=== PATIENT | female | born 1970 | race Asian ===

== ENCOUNTER 2016-09-16 04:51 | Inpatient (IN) | payer OTHER ==
[2016-09-12 18:19] VITALS: BMI 23.2
[~2016-09-16 04:51] MED LIST: GELATIN SPONGE,ABSORBABLE 1 GM PACKET TP ONE; THROMBIN (BOVINE) 5,000 UNIT VIAL TP ONE
[2016-09-16] MEDS ORDERED: THROMBIN (BOVINE) 5,000 UNIT VIAL TP ONE ×2 (07:12→09:06)
[2016-09-16] MEDS ORDERED: BACITRACIN 15 GM TUBE TOPICAL OINTMENT ONE (07:12)
[2016-09-16] MEDS ORDERED: SUCCINYLCHOLINE CHLORIDE 200 MG/10 ML VIAL ONE (07:39)
[2016-09-16] MEDS ORDERED: LIDOCAINE HCL/PF 2% SDV 5ML VIAL ONE (07:39)
[2016-09-16] MEDS ORDERED: PROPOFOL 20 ML ONE ×14 (07:39→10:44)
[2016-09-16] MEDS ORDERED: MIDAZOLAM HCL 2 MG/2 ML SINGLE DOSE VIAL ONE (07:40)
[2016-09-16] MEDS ORDERED: DESFLURANE GAS 240 ML BOTTLE IH ONE (07:47)
[2016-09-16] MEDS ORDERED: ROCURONIUM BROMIDE 50 MG/5 ML VIAL ONE (07:51)
[2016-09-16] MEDS ORDERED: SCOPOLAMINE HYDROBROMIDE 1 PATCH PATCH.TD72 ONE (07:59)
--- NOTE | 2016-09-16 08:00 | HP ---
History & Physical Update - History History: No Change - Physical Physical: No Change - Assessment Assessment: No Change - Plan Plan: No Change
[2016-09-16] MEDS ORDERED: ceFAZolin SODIUM 1 GM VIAL ONE ×2 (08:28→17:50)
[2016-09-16] MEDS ORDERED: ceFAZolin SODIUM 1 GM VIAL IVPB ONE (08:40)
[2016-09-16] MEDS ORDERED: DEXAMETHASONE SOD PHOSPHATE 4 MG/1 ML VIAL ONE (08:57)
[2016-09-16] MEDS ORDERED: ONDANSETRON 4 MG/2 ML VIAL ONE (08:57)
[2016-09-16] MEDS ORDERED: BACITRACIN 50,000 UNITS VIAL TP ONE (09:06)
[2016-09-16] MEDS ORDERED: BACITRACIN 15 GM TUBE TOPICAL OINTMENT TP ONE ×2 (09:06→12:15)
[2016-09-16] MEDS ORDERED: ePHEDrine SULFATE 50 MG/1 ML AMPULE ONE (09:34)
[2016-09-16] MEDS ORDERED: BUPIVACAINE HCL/PF 0.5% (5MG/ML) 10 ML VIAL ONE (11:31)
--- NOTE | 2016-09-16 12:00 | OP ---
Operative Note - Note: Operative Date: 09/16/16 Pre-Operative Diagnosis: L4-5 spondylolisthesis, stenosis; instability, radiculopathy Operation: Complete B L4 and partial B L5 laminectomies for decompression of thecal sac and B L4-5 roots; microsurgical dissection; L4-5 B discectomy, interobody fusion, interbody implant placement B with 11 mm corticocancellous device; posterior pedicle screw system placement L4-5; posterolateral fusion L4- 5; fluoroscopy Findings: sensitive L 4 and L5 roots, L >? R; stenosis lateral recess L > R; instability L4-5; EMG threshold > 20 for all 4 screws Implants: [employer] [place] 4.5 system (6.5 x40 mm screws x4 and 40 mm rods x2) Surgeon: Dat Shelton Shroud Line Tier: Sarah Castro Anesthesiologist/CANDLE MAKING SUPERVISOR: Cabrera Guthrie Anesthesia: General Specimens Removed: L4-5 disc Estimated Blood Loss (mls): 150
[2016-09-16] MEDS ORDERED: ONDANSETRON 4 MG/2 ML VIAL IVPB PRN (12:01)
[2016-09-16] MEDS ORDERED: ACETAMINOPHEN 325 MG TABLET (FP) PO PRN (12:01)
[2016-09-16] MEDS ORDERED: BISACODYL 10 MG SUPP.RECT RC PRN (12:01)
[2016-09-16] MEDS ORDERED: ACETAMINOPHEN/CAFFEINE/BUTALBITAL 1 TAB PO PRN (12:02)
[2016-09-16] MEDS ORDERED: BUPIVACAINE HCL/PF 0.5% (5MG/ML) 10 ML VIAL IJ ONE (12:05)
[2016-09-16] MEDS ORDERED: PROMETHAZINE HCL 25 MG/1 ML VIAL IVPB PRN (12:23)
[2016-09-16] MEDS ORDERED: DEXAMETHASONE SOD PHOSPHATE 4 MG/1 ML VIAL IVPUSH PRN (12:23)
[2016-09-16] MEDS ORDERED: HYDROmorphone *PCA* 10MG/50ML DISP.SYRIN PCA SCH (12:30)
--- NOTE | 2016-09-16 12:47 | PN ---
Progress Note (short form) - Note Progress Note: NEUROSURGERY In PACU AF, VSS; O2 sat 100% PE: CV- RRR; Lungs- CTA B; Abd-benign; Ext- No sign of DVT Motor- B Quad/DF/PF 5/5, Sensation- intact LT RETAIL GREETER for pain Intra-op findings d/w David by phone (no unexpected bleeding) Labs pending LSO brace when OOB
--- NOTE | 2016-09-16 12:53 | SURG ---
Surgery Fisher Seal Note Fisher Seal: Sarah Castro PA-C Date of Service: 09/16/16 Diagnosis: L4-5 spondylolisthesis, stenosis; instability, radiculopathy Procedure: Complete B L4 and partial B L5 laminectomies for decompression of thecal sac and B L4-5 roots; microsurgical dissection; L4-5 B discectomy, interobody fusion , interbody implant placement B with 11 mm corticocancellous device; posterior pedicle screw system placement L4-5; posterolateral fusion L4-5; fluoroscopy I was present for the entirety of the operative procedure. For further detail, please refer to operative report. Visit type - Case Type Case Type: Scheduled Admission - Emergency Emergency Visit: No - New patient This patient is new to me today: Yes Date on this admission: 09/16/16 - Critical Care Critical Care patient: No
[2016-09-16 13:02] LABS: MCH 31.3 pg (25.7-33.7); MCHC 34.8 g/dl (32.0-36.0); MEAN CELL VOLUME 89.8 fl (80-96); MEAN PLT VOLUME 7.2 fl (7.5-11.1); PLATELET COUNT 222 K/MM3 (134-434); RDW 12.1 % (11.6-15.6); WHITE BLOOD COUNT 6.2 K/mm3 (4.0-10.0)
[2016-09-16 13:27] LABS: ANION GAP 8 (8-16); CALCIUM 8.6 mg/dL (8.5-10.1); CO2 28 mmol/L (21-32); CREATININE 0.8 mg/dL (0.55-1.02); GLUCOSE,RANDOM 114 mg/dL (74-106)
[2016-09-16] MEDS: D5-1/2NS+20 MEQ KCL - 1,000 ML IV SCH ×2 (13:30→23:25)
[2016-09-16] MEDS: BACITRACIN 15 GM TUBE TOPICAL OINTMENT TP SCH ×2 (14:15→22:10)
[2016-09-16] MEDS ORDERED: PROMETHAZINE HCL 25 MG/1 ML VIAL ONE (14:17)
[2016-09-16] MEDS: diazePAM 5 MG TABLET PO SCH ×3 (16:23→21:13)
[2016-09-16] MEDS: DOCUSATE SODIUM 100 MG CAPSULE (FP) PO SCH ×2 (16:24→21:13)
[2016-09-16] MEDS ORDERED: DEXTROSE 5%-WATER - 50 ML IVPB ONE (17:50)
[2016-09-16] MEDS: CEFAZOLIN 1 GM in DEXTROSE 5%-WATER - 50 ML IVPB SCH (17:58)
[2016-09-17] MEDS ORDERED: ceFAZolin SODIUM 1 GM VIAL ONE ×2 (00:49→10:45)
[2016-09-17] MEDS ORDERED: DEXTROSE 5%-WATER - 50 ML IVPB ONE ×2 (00:49→10:46)
[2016-09-17] MEDS: CEFAZOLIN 1 GM in DEXTROSE 5%-WATER - 50 ML IVPB SCH ×2 (02:39→10:53)
[2016-09-17] MEDS: diazePAM 5 MG TABLET PO SCH ×3 (05:44→22:15)
[2016-09-17] MEDS: DOCUSATE SODIUM 100 MG CAPSULE (FP) PO SCH ×3 (05:44→22:15)
--- NOTE | 2016-09-17 07:53 | PN ---
Progress Note (short form) - Note Progress Note: NEUROSURGERY POD #1 Incisional pain Nausea (always has nausea after anesthesia) Tmax 98.9, AF, VSS PE: CV- RRR; Lungs- CTA B; Abd-benign; Ext- No sign of DVT Motor- B Quad/DF/PF 5/5 except L DF/PF 4+, Sensation- intact LT WBC 6.2, Hgb 12.9 D/C PROCESS DEVELOPMENT CHEMIST Transition to Nucynta Keep clemons for 24 hours more Intra-op findings d/w pt Decadron x1 LSO brace when OOB Adv diet
[2016-09-17] MEDS ORDERED: HYDROmorphone HCL CARPU-JECT 1 MG/1 ML DISP.SYRIN IVPB PRN (08:11)
[2016-09-17] MEDS ORDERED: DEXAMETHASONE SOD PHOSPHATE 4 MG/1 ML VIAL IVPB ONE (08:30)
[2016-09-17] MEDS: TAPENTADOL HYDROCHLORIDE 50 MG TABLET PO PRN ×3 (10:51→22:15)
[2016-09-17] MEDS: BACITRACIN 15 GM TUBE TOPICAL OINTMENT TP SCH ×2 (10:52→22:16)
[2016-09-17] MEDS: LISINOPRIL 5 MG TABLET (FP) PO SCH (10:52)
[2016-09-17] MEDS ORDERED: ACETAMINOPHEN 1000 MG/100 ML VIAL (NON FORMULARY) IVPB PRN (14:09)
[2016-09-17] MEDS: GABAPENTIN 100 MG CAPSULE (FP) PO SCH ×2 (14:29→22:15)
[2016-09-17] MEDS: D5-1/2NS+20 MEQ KCL - 1,000 ML IV SCH (14:30)
--- NOTE | 2016-09-17 14:35 | PN ---
Progress Note (short form) - Note Progress Note: ANESTHESIOLOGY POST-OP CHECK 46F s/p PLIF under general anesthesia POD #1. Pt c/o nausea, vomiting. Dilaudid DRY WALL INSTALLER discontinued and some improvement noted. Pain 10/10 but nausea is worse and currently hesitant to take pain meds. Gamble in place. Vital Signs Temperature 98.9 F 09/17/16 06:00 Pulse Rate 59 L 09/17/16 06:00 Respiratory Rate 18 09/17/16 06:00 Blood Pressure 115/66 09/17/16 06:00 O2 Sat by Pulse Oximetry (%) 100 09/16/16 21:00 Active Medications Acetaminophen (Tylenol -) 650 mg PO Q6H PRN PRN Reason: FEVER Acetaminophen (Ofirmev Injection -) 1,000 mg IVPB Q6H PRN PRN Reason: PAIN Stop: 09/18/16 08:10 Acetaminophen/Butalbital/Caffeine (Fioricet -) 1 tablet PO PRN PRN PRN Reason: MIGRAINE Bacitracin (Bacitracin -) 1 applic TP BID [facility] Last Admin: 09/17/16 10:52 Dose: 1 applic Bisacodyl (Dulcolax Suppository -) 10 mg RC DAILY PRN PRN Reason: CONSTIPATION Dexamethasone Sodium Phosphate (Decadron Injection -) 4 mg IVPUSH ONCE PRN PRN Reason: NAUSEA AND/OR VOMITING Diazepam (Valium -) 5 mg PO TID [facility] Last Admin: 09/17/16 05:44 Dose: 5 mg Diphenhydramine HCl (Benadryl Injection -) 12.5 mg IVPUSH ONCE PRN PRN Reason: FOR ITCHING Docusate Sodium (Colace -) 100 mg PO TID [facility] Last Admin: 09/17/16 05:44 Dose: 100 mg Gabapentin (Neurontin -) 100 mg PO TID [facility] Hydromorphone HCl (Dilaudid Injection -) 1 mg IVPB Q4H PRN PRN Reason: PAIN Potassium Chloride/Dextrose/Sod Cl (D5-1/2ns+20 Meq Kcl -) 1,000 mls @ 100 mls/ hr IV ASDIR [facility] Last Admin: 09/16/16 23:25 Dose: 100 mls/hr Potassium Chloride/Dextrose/Sod Cl (D5-1/2ns+20 Meq Kcl -) 1,000 mls @ 42 mls/ hr IV ASDIR MARCELLE Lisinopril (Prinivil) 5 mg PO DAILY MARCELLE Last Admin: 09/17/16 10:52 Dose: 5 mg Ondansetron HCl (Zofran Injection) 4 mg IVPB Q6H PRN PRN Reason: NAUSEA AND/OR VOMITING Last Admin: 09/17/16 06:38 Dose: 4 mg Promethazine HCl (Phenergan Injection -) 12.5 mg IVPB Q6H PRN PRN Reason: NAUSEA AND/OR VOMITING Tapentadol (Nucynta -) 50 mg PO Q4H PRN PRN Reason: PAIN Last Admin: 09/17/16 10:51 Dose: 50 mg Gen: awake, alert No apparent anesthesia complications. Nausea treated, discussed with patient to ask for pain meds if needed and continue anti-nausea meds.
[2016-09-17] MEDS ORDERED: SCOPOLAMINE HYDROBROMIDE 1 PATCH PATCH.TD72 ONE (14:49)
--- NOTE | 2016-09-17 15:10 | OP ---
DATE OF OPERATION: 09/16/2016 PREOPERATIVE DIAGNOSES: 1. L4-L5 spondylolisthesis with segmental instability. 2. Bilateral lateral recess and foraminal stenosis, left greater than right, with lumbar radiculopathy. POSTOPERATIVE DIAGNOSES: 1. L4-L5 spondylolisthesis with segmental instability. 2. Bilateral lateral recess and foraminal stenosis, left greater than right, with lumbar radiculopathy. ATTENDING SURGEON: Dat Shelton MD BRIM POUNCING MACHINE OPERATOR: JOSSUE Castellanos ANESTHESIA: General endotracheal. ANESTHESIOLOGIST: Saskia Hernandez CRNA and Cabrera Guthrie MD ESTIMATED BLOOD LOSS: Was 150 mL. PROCEDURES: 1. Complete bilateral L4 and partial bilateral L5 laminectomies including facetectomies at L4-5 and foraminotomies at L4-5 and L5-S1 for decompression of the spinal canal as well as bilateral L4 and L5 nerve roots (37360, 40156). 2. Harvested autologous laminar spinous process and facet bone for interbody and posterolateral fusion (75628). 3. Microsurgical dissection with operating microscope and microsurgical technique (17679). 4. Bilateral L4-5 diskectomy. 5. Posterior lumbar interbody fusion L4-5 (31356). 6. Utilization of intervertebral 11-mm cortical cancellous bone prosthetic device from [employer] (93005). 7. Posterior lumbar pedicle screw fixation with distal placement from L4 to L5 with [employer] [place] 4.5 titanium system (6.5 x 40 mm screws at L4 and L5 bilaterally connected by 40-mm rods and locking screws) (32529). 8. Posterior lateral fusion with autologous morcellized bone graft and bone dust at L4-5 (61216). 9. Intraoperative fluoroscopy for localization of pedicle screw placement (08614-44). FINDINGS: 1. Instability L4-5. 2. Facet hypertrophy L4-5 bilaterally, left greater than right. 3. Extremely sensitive lumbar nerve roots L4 and L5, left greater than right. 4. Lateral recess stenosis with left L5 greater than L4 nerve root impingement. INDICATIONS: The patient is a 46-year-old female who complains of progressive lower back pain and left lower extremity radiculopathy. She was found on MRI to have spondylolisthesis and kyphosis at L4-5. Her flexion-extension x-ray demonstrated instability at the L4-5 level in the sagittal plane. Because of her intractable symptoms, neurological deficit to the left lower extremity, and failed conservative treatment, she is consented for lumbar decompression and fusion with instrumentation. The risks of procedure include but are not limited to bleeding, infection, dural tear with CSF leak, neurological injury increase in thromboembolic risks, adjacent level disease, nonunion of the fusion, and other risks of general anesthesia. The patient understands the indications for the procedure, procedure in detail, risks and benefits, and alternatives for treatment of her lumbar condition, and wishes to proceed. No guarantee was given for favorable outcome. Intraoperative SSEP and EMG monitoring were instituted. PROCEDURE IN DETAIL: After the patient was taken to the operating room, she was placed in supine position. After general anesthesia was induced and appropriate lines were placed, Gamble catheter was inserted. SCDs were applied. The patient was then turned in a prone position on a Alli frame. All pressure points were checked and padded. O2 saturation of bilateral lower extremities was 100%. Lumbar region was cleaned with alcohol and prepped with Betadine. A localizing x-ray was obtained with a spinal needle in place. This localized the incision to be at L4-5. An approximately 3-1/2-inch incision was opened in the midline. Subperiosteal dissection was carried out bilaterally from the bottom of the L3 lamina to the bottom of L5 lamina. The facet joints at L3-4 and L4-5 were skeletonized with periosteal elevator and self-retaining retractors were inserted. At this point, a clamp was placed on inter- spinous ligament at L4-5 and localizing x-ray was obtained to ascertain the exposure to be at the L4-5 level. Bilateral L4 complete laminectomy was carried out as well as partial bilateral L5 laminectomy. Facetectomy at L4-5 was also carried out because of facet hypertrophy as well as to gain access into the lateral recess. High speed pneumatic drill was used to bur down the bone surface until it was smooth. This portion of the procedure was performed with the use of operating microscope for both illumination and magnification. Microsurgical techniques were utilized. The ligamentum flavum was dissected with angled curette and resected with Kerrison rongeur. Lateral recess was thoroughly decompressed. The left L5 nerve root was under more compression than the right L5 nerve root, and it was sensitive to bipolar electrocautery stimulation from the start of the procedure. After decompression of the L5 and L4 nerve roots, nerve roots were much less sensitive. After lateral recesses were decompressed and under general left L5 nerve root retraction, disk annulus was incised with a No. 15 blade. The disk space was cleaned with serially larger disk space scraper from 7-11 mm. A 12-mm disk space distractor was placed. Preoperatively, the disk space was sized to be approximately 10 mm in maximal height. Attention was then turned to the right-sided L4-5 interspace, and under general right L5 nerve root retraction, disk annulus was excised with a No. 15 blade. The disc space_ was cleaned with serially larger disk space scraper from 8 to 11 mm. The straight, side-cutting and downgoing angled curettes were used to clean the disk space, and the lateral aspect of the disk space was burred out with high-speed pneumatic drill to create a path for the interbody implant. The 11 x 25-mm body implant was inserted and countersunk by about 2 mm on the right. The procedure was then repeated on the left-hand side after distraction was moved. After disk space was cleaned, a central portion of the disk space was packed with autologous morcellized bone graft. The bone graft was previously harvested and prepared with bone meal. Another 11 x 25-mm body implant was inserted and was countersunk by 3 mm on the left-hand side. The drill was kept wet throughout the procedure with occasional irrigation. At this point, the microscope was moved out of the field , and the fluoroscope was draped and first moved into the AP position to ascertain the AP position in the spine of the lower lumbar region. The head of the scope was then turned to the lateral position after which sterile draping was completed on the other arm of the fluoroscope. The entry point of pedicle screw was marked with high- speed pneumatic drill, and a handheld awl was used to create a path for the pedicle screw. The screw was aimed medially by about 10 degrees from L4 and L5. Screw holes were then tapped and then a 6.5 x 40-mm screw was used at L4 and L5 bilaterally. This was done with lateral fluoroscopic guidance throughout. With EMG, each pedicle screw was tested, and they were all greater than 20 mA. A 40-mm marilu was loaded on top of the pedicle screws and locked with locking screws. The screws were compressed prior to final tightening. A torque and counter torque wrench were used for final tightening of the pedicle screw. Final lateral and AP fluoroscopic imaging demonstrated satisfactory position of the interbody implants as well as the pedicle screw implants. At this point, the posterolateral surface of the spine was decorticated with high-speed pneumatic drill, and it was packed with autologous morcellized bone graft and bone dust harvested and prepared earlier. The interbody implants were tapped anteriorly so they were flush bilaterally and they were countersunk by about 4 mm bilaterally. At this point, the wound was irrigated with antibiotics and irrigation. A piece of 4 x 4-cm Active Barrier membrane was layered in the epidural space as an adhesion barrier. Dorsal lumbar musculature hemostasis was obtained with bipolar electrocautery. Dorsal lumbar muscle was then approximated with 0 Vicryl suture, and dorsal lumbar fascia was closed with 0 Vicryl sutures. Subcutaneous fascia was closed with 3-0 Vicryl suture. The skin was closed with 4-0 Vicryl running subcuticular suture. Steri-Strips and a sterile occlusive dressing were applied. The patient tolerated the procedure well and was returned back to the supine position. She was moving bilateral lower extremities well. All needle, instrument, lap counts were correct. Intraoperative SSEP and EMG signals remained stable throughout. The patient received 1 dose of 1 g of Ancef prior to the incision. The OR timeout procedure was followed. Zeus CHEUNG/[id number] MTDFarrukh
--- NOTE | 2016-09-17 16:05 | PATH ---
Surgical Pathology Report Patient Name: EDINSON ROSEN Med. Rec. #: [id number] /Age/Gender: 1970 (Age: 46) / F Account: [id number] Location: [facility] MED/SURG Taken: 09/16/2016 Received: 09/16/2016 Reported: 09/17/2016 Physicians: Dat Shelton M.D. Specimen(s) Received DISC L4-L5 Clinical History Lumbar spinal spondylolisthesis, spinal instability Final Diagnosis INTERVERTEBRAL DISC, L4-5, POSTERIOR LUMBAR INTERBODY FUSION: CARTILAGE WITH DEGENERATIVE CHANGES. Electronically Signed Pa Sim M.D. Gross Description Received in formalin labeled "disc, L4-5" is a 2.3 x 2.0 x 0.3 cm aggregate of abdalla fragments of fibrocartilaginous tissue. A office services representative portion is submitted in one cassette. /09/16/2016 saudi/09/16/2016
[2016-09-18] MEDS: GABAPENTIN 100 MG CAPSULE (FP) PO SCH ×3 (06:38→22:12)
[2016-09-18] MEDS: diazePAM 5 MG TABLET PO SCH ×3 (06:38→22:12)
[2016-09-18] MEDS: DOCUSATE SODIUM 100 MG CAPSULE (FP) PO SCH ×3 (06:38→22:12)
[2016-09-18] MEDS: TAPENTADOL HYDROCHLORIDE 50 MG TABLET PO PRN ×3 (06:40→22:12)
--- NOTE | 2016-09-18 08:19 | PN ---
Progress Note (short form) - Note Progress Note: NEUROSURGERY POD #2 Incisional pain and spasm Less nausea today(pt always has nausea after anesthesia) Daughter at bedside Tmax 99.1, AF, VSS PE: CV- RRR; Lungs- CTA B; Abd-benign; Ext- No sign of DVT Motor- B Quad/DF/PF 4+-5/5 except L DF/PF 4+, Sensation- intact LT LS spine x-rays- intact implants; L4-5 space restored; ileus On prn Nucynta and Dilaudid D/C clemons Intra-op findings d/w pt LSO brace when OOB Bowel regimen Incentive spirometry encouraged Adv diet D/C IVF
[2016-09-18] MEDS: BACITRACIN 15 GM TUBE TOPICAL OINTMENT TP SCH ×3 (09:26→22:25)
[2016-09-18] MEDS: LISINOPRIL 5 MG TABLET (FP) PO SCH (09:26)
[2016-09-19] MEDS: D5-1/2NS+20 MEQ KCL - 1,000 ML IV SCH ×2 (00:25→13:25)
[2016-09-19] MEDS: DOCUSATE SODIUM 100 MG CAPSULE (FP) PO SCH ×3 (06:38→21:38)
[2016-09-19] MEDS: diazePAM 5 MG TABLET PO SCH ×3 (06:38→21:38)
[2016-09-19] MEDS: GABAPENTIN 100 MG CAPSULE (FP) PO SCH ×3 (06:38→21:38)
--- NOTE | 2016-09-19 07:36 | PN ---
Progress Note (short form) - Note Progress Note: NEUROSURGERY POD #3 Incisional pain and spasm Able to void after Gamble out Tolerating regular diet Less nausea at bedside Tmax 99.7, AF, VSS PE: CV- RRR; Lungs- CTA B; Abd-benign; Ext- No sign of DVT Motor- B Quad/DF/PF 4+-5/5, Sensation- intact LT Dressing C/D/I- changed On prn Nucynta and Dilaudid Intra-op findings d/w pt LSO brace when OOB Bowel regimen- give mag citrate Incentive spirometry encouraged CBC/chem in am
[2016-09-19] MEDS: TAPENTADOL HYDROCHLORIDE 50 MG TABLET PO PRN ×2 (07:42→21:39)
[2016-09-19] MEDS ORDERED: PT OWN MED DRAWER 7, Y5N ONE (09:23)
[2016-09-19] MEDS: MAGNESIUM CITRATE 300 ML BOTTLE PO SCH ×3 (09:26→11:49)
[2016-09-19] MEDS: LISINOPRIL 5 MG TABLET (FP) PO SCH (09:27)
[2016-09-19] MEDS: BACITRACIN 15 GM TUBE TOPICAL OINTMENT TP SCH ×2 (09:30→22:34)
[2016-09-20] MEDS: DOCUSATE SODIUM 100 MG CAPSULE (FP) PO SCH ×3 (06:30→22:13)
[2016-09-20] MEDS: diazePAM 5 MG TABLET PO SCH ×3 (06:30→22:13)
[2016-09-20] MEDS: GABAPENTIN 100 MG CAPSULE (FP) PO SCH ×3 (06:30→22:13)
[2016-09-20 08:33] LABS: BASOPHIL 0.4 % (0-2.0); EOSINOPHIL 2.1 % (0-4.5); MCH 31.4 pg (25.7-33.7); MCHC 34.8 g/dl (32.0-36.0); MEAN CELL VOLUME 90.4 fl (80-96); MEAN PLT VOLUME 7.4 fl (7.5-11.1); NEUTROPHILS 73.6 % (42.8-82.8); PLATELET COUNT 251 K/MM3 (134-434); RDW 12.5 % (11.6-15.6); WHITE BLOOD COUNT 7.6 K/mm3 (4.0-10.0)
--- NOTE | 2016-09-20 08:51 | PN ---
Progress Note (short form) - Note Progress Note: NEUROSURGERY POD #4 Incisional pain and spasm Walking to solarium BM x2 last 24 hours Tolerating regular diet Daughter at bedside Some numbness L leg but no sciatica (not unexpected given prior sciatica) Tmax 100.5, 98.7 now, VSS PE: CV- RRR; Lungs- CTA B; Abd-benign; Ext- No sign of DVT Motor- B Quad/DF/PF 4+-5/5, Sensation- intact LT Dressing C/D/I- changed WBC 7.6; Na 140; BUN 7, Cr 0.8 On prn Nucynta and Dilaudid LSO brace when OOB Incentive spirometry encouraged
[2016-09-20] MEDS ORDERED: PT OWN MED DRAWER 7, Y5N ONE (09:17)
[2016-09-20] MEDS: LISINOPRIL 5 MG TABLET (FP) PO SCH (09:20)
[2016-09-20] MEDS: BACITRACIN 15 GM TUBE TOPICAL OINTMENT TP SCH ×2 (09:21→22:15)
[2016-09-20] MEDS: TAPENTADOL HYDROCHLORIDE 50 MG TABLET PO PRN ×2 (09:41→20:27)
[2016-09-20] MEDS: D5-1/2NS+20 MEQ KCL - 1,000 ML IV SCH (13:01)
[2016-09-21] MEDS: diazePAM 5 MG TABLET PO SCH ×2 (06:35→13:28)
[2016-09-21] MEDS: GABAPENTIN 100 MG CAPSULE (FP) PO SCH ×2 (06:35→13:28)
[2016-09-21] MEDS: DOCUSATE SODIUM 100 MG CAPSULE (FP) PO SCH ×2 (06:35→13:28)
[2016-09-21] MEDS: TAPENTADOL HYDROCHLORIDE 50 MG TABLET PO PRN ×2 (09:27→13:28)
[2016-09-21] MEDS: LISINOPRIL 5 MG TABLET (FP) PO SCH (09:28)
--- NOTE | 2016-09-21 10:48 | PN ---
Progress Note (short form) - Note Progress Note: NEUROSURGERY POD #5 Incisional pain and spasm Occ sciatica Tolerating regular diet at bedside Wants to go home Tmax 100, 98.9 now, VSS PE: CV- RRR; Lungs- CTA B; Abd-benign; Ext- No sign of DVT Motor- B Quad/DF/PF 4+-5/5, Sensation- intact LT Dressing C/D/I- changed earlier by RN; skin irritation from tegaderm On prn Nucynta and Dilaudid LSO brace when OOB PO Abx prophylactically Incentive spirometry encouraged
[2016-09-21] MEDS ORDERED: DEXAMETHASONE 4 MG TABLET (FP) PO ONE (11:30)
[2016-09-21 11:45] VITALS: BP 87/50; PULSE 82; TEMP 99.1
== END 2016-09-21 15:35 | disposition home health service (06) | DRG 460 ==
LOC: JSAMEDAYSX 04:51 → J8W 15:21
PROVIDERS: ADMIT Neurological Surgery; ATTEND Neurological Surgery
PROC: 0SG10A1 (ICD-10-PCS; 2016-09-16)
PROC: 0SB20ZZ Excision of Lumbar Vertebral Disc, Open Approach (ICD-10-PCS; principal; 2016-09-16 08:00)
DX: M43.16 Spondylolisthesis, lumbar region (principal); M48.06 Spinal stenosis, lumbar region; G89.18 Other acute postprocedural pain; M62.830 Muscle spasm of back; M54.16 Radiculopathy, lumbar region
CPT/HCPCS: 36415; 72100-TC; 76000-TC; 80048; 85025; 85027; 86850; 86900; 86901; 88304-TC; 94010; 94760; 97116-GP; 97161-GP